=== PATIENT | female | born 1995 | race Caucasian/White ===

== ENCOUNTER → 2018-04-30 15:55 | Outpatient (CLI) | payer OTHER, SELFPAY ==
[2018-04-30 18:48] LABS: HIV - WCH Non-Reactive (Nonreactive)
[2018-04-30 19:29] LABS: Chlamydia Trachomatis by PCR Negative (Negative); Neisserai gonorrhoeae by PCR Negative (Negative); Probe Check PASS; Sample Adequacy Control PASS; Specimen Processing Control PASS
[2018-05-02 05:06] LABS: Rapid Plasmin Reagin (RPR) NONREACTIVE (NONREACTIVE)
== END ==
PROVIDERS: Family Provider Family Medicine; PCP Family Medicine; Visit Provider Family Medicine
DX: Z11.3 Encounter for screening for infections with a predominantly sexual mode of transmission (principal)
CPT/HCPCS: 36415; 86592; 86703; 87491; 87591

== ENCOUNTER → 2018-09-12 12:17 | Outpatient (CLI) | payer OTHER, SELFPAY ==
[2018-09-12 15:10] LABS: HIV - WCH Non-Reactive (Nonreactive)
[2018-09-12 16:03] LABS: Chlamydia Trachomatis by PCR Negative (Negative); Neisserai gonorrhoeae by PCR Negative (Negative); Probe Check PASS; Sample Adequacy Control PASS; Specimen Processing Control PASS
[2018-09-19 05:26] LABS: Rapid Plasmin Reagin (RPR) NONREACTIVE (NONREACTIVE)
== END ==
PROVIDERS: Family Provider Family Medicine; PCP Family Medicine; Visit Provider Family Medicine
DX: Z11.3 Encounter for screening for infections with a predominantly sexual mode of transmission (principal)
CPT/HCPCS: 36415; 86592; 86703; 87491; 87591

== ENCOUNTER 2019-05-11 09:00 | Outpatient (RCR) | payer OTHER, SELFPAY ==
--- NOTE | 2019-05-11 09:05 | BH.SGPN.GN ---
Behaviors/Verbalizations/Mental Status: []Client alert and oriented, casually dressed and groomed. Eye contact good. Motor activity appropriate. Speech soft. Affect congruent, mood anxious. Thoughts linear, logical, no signs of hallucinations or delusions. Reviewed client?s symptom tracker, no risk for suicidal ideation, plan, or intent as of 05/11/19. Client Response/Progress/Benefit: []Client responded well to session, receptive to feedback from peers. Client reports feeling ?anxious? today as it is her first day in IOP. Client reported she has been dealing with mental health for a long time and she wants to work on better managing her symptoms and ?improving my memory.? Client reports that she dissociates and then misses out on important things in her life. Client also shared her dissociation impacts her relationships. Client?s current stressor includes anxiety symptoms and interpersonal relationship issues. Client appeared to benefit from connecting with peers. Client?s first day in IOP. Client to continue to prevent decompensation and reduce intensity of symptoms.
--- NOTE | 2019-05-11 10:20 | BH.SGPN.GN ---
Behaviors/Verbalizations/Mental Status: [] Eye contact is good. Motor activity is appropriate. Appearance is casual. Speech is Appropriate. Mood is depressed. Affect is flat. Thoughts are linear and logical. No evidence of psychosis. Client Response/Progress/Benefit: [] Pt provided insight during group discussions. Attentive. Processed quote of the day with peers. Group worked together to identify barriers to making changes or taking action in their lives which included; lack of self-awareness, old habits, one's mindset, fear of failure, negative emotions (depression, anxiety, etc..), lack of resources, and other people. Group also identified that benefits of change which included; improved relationships, increased communication, improved mental wellness, increased confidence, and feelings of accomplishment. Discussion on the costs of not taking action or making changes which included; being stuck, no growth, lose friendships, impairs functioning, and not changes is a form of self-sabotage. Pt attentive during psychoeducation on the zones of change. Benefited from group through awareness of barriers and benefits to taking action towards mental wellness. Narrative Note: []
--- NOTE | 2019-05-11 11:23 | BH.SGPN.GN ---
Behaviors/Verbalizations/Mental Status: [Client alert and oriented. Appearance is casual, appropriate grooming. Eye contact good. Motor activity WNL. Speech appropriate rate and tone. Affect congruent. mood anxious. Thoughts linear, logical, no signs of hallucinations or delusions.] Client Response/Progress/Benefit: [Pt provided some input to discussion, remaining attentive and taking notes throughout. Pt benefitted from working with group to reflect upon the mental health benefits of taking small actionable steps towards addressing barriers and promoting healthy change in daily life. Indicated at times struggling with motivation and belief in her own ability to successfully make changes. Pt did well to work with the group on completing the example Change Action Plan and applying the skills learned to pt own Action Plan. Pt identified wanting to improve ability to manage anxious thoughts. Pt shared this would increase stability, reduce dissociation, and increase hope. Pt shared she would begin by practicing applying grounding skills and positive affirmations when feeling anxious. Pt progress noted in ability to identify concrete and realistic steps to addressing barriers to actionable change identified. Recommended continued IOP tx to prevent decompensation, reduce anxiety, and promote healthy change behaviors.] Narrative Note: []
--- NOTE | 2019-05-13 09:10 | BH.SGPN.GN ---
Behaviors/Verbalizations/Mental Status: []Client alert and oriented, casually dressed. Eye contact good. Motor activity appropriate. Speech within normal limits. Affect constricted, mood anxious. Thoughts linear, logical, no signs of hallucinations or delusions. Reviewed client?s symptom tracker, patient indicated a 2/5, with 5 representing severe, for suicidal ideation and a 0/5 for suicidal intention. Client does not seem to be imminent risk to self or others. Future focused. Client Response/Progress/Benefit: []Pt was an active participant in group discussion, providing input and openly processing with the group. Emotion for today is anxious. Pt identified she has been struggling with constant fatigue. Pt states she will sleep for 12+ hours and still feel tired and fatigued. Pt noted progress as being able to drive to IOP today despite feeling anxious when driving. Additional positive as talking with friends via skype yesterday instead of isolating. Progress noted by pt applying healthy skills to manage anxiety outside treatment environment. Continued IOP tx recommended to increase awareness of distorted thoughts, prevent decompensation, and increase healthy coping skills. Narrative Note: []
--- NOTE | 2019-05-13 11:21 | BH.SGPN.GN ---
Behaviors/Verbalizations/Mental Status: [Client alert and oriented, casually dressed and appropriately groomed. Eye contact fair to good. Motor activity appropriate. Speech within normal limits. Affect congruent, mood dysthymic and anxious. Thoughts linear, logical, no signs of hallucinations or delusions.] Client Response/Progress/Benefit: [Client responded well to session, engaged in activity, and providing input to discussion. Group identified the benefits of addressing stigma which included; increased self-confidence and self-acceptance, improved willingness to ask for help, improved relationships and feeling more supported, and less self-deprecation. Client helped the group identify thoughts and behaviors people engage in that reinforce stigma. Client reported he has struggled with negative self-talk, shame, feeding into societal expectations and perspectives related to mental health, and labeling which reinforces stigma in pt life. Shared how his difficulties in dealing with adversity on other areas of his life has influenced mental health stigma and reinforced feelings of shame. Group brainstormed strategies to combat social and perceived stigma which included; changing personal language used, sharing positive mental health related media, communicating with supports to help them better understand mental health, and increasing psychoeducation of self and others. Client reported he will practice being more self-aware of the types of language he uses as a means to combat stigma. Appeared to benefit from increasing awareness of ways current behaviors may reinforce stigma and how to combat stigma. Will continue IOP tx to further reduce anxiety and depression, improve mood stability, as well as increase the use of calming skills.] Narrative Note: []
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
--- NOTE | 2019-05-15 14:10 | HP.PCM_ITS ---
History and Physical Date of Admission: 05/11/19 Chief Complaint: The patient is a 23-year old transgender female (biological male) who is beginning treatment in the intensive outpatient mental treatment program at [facility]. She has a history of chronic depression, anxiety, dissociative episodes, gender dysphoria and personality vulnerabilities. She is self-referred following an admission to [facility] in January 2019. History of Present Illness: Patient states that she has had problems with depression since elementary school. She reports episodes of depression of usually a moderate intensity. She reports that her mood is currently fairly good with the help of her medications. There is no history of manic episodes. Her mood decompensated earlier this year in the setting of a relationship problem. She said that she was having sex with a girl when the girl told her to stop touching her a certain way. However, she ignored the girl's complaints and continued the sexual behavior. Subsequently, she started to feel bad about what happened, went into a dissociative state, started cutting herself and became suicidal. This is what prompted the [place] admission in January 2019. She further reports that she has had problems with anxiety ever since elementary school. She is a big worrier and often worries about the future, many what if's and relationship issues. The patient has personality vulnerabilities. She lacks coping skills and goes into frequent dissociative episodes. She said that during her dissociative episodes she has out of body experiences a sense of unreality. She also lacks recall, and said that there are long periods of time that she just does not remember. She also has a history of mood swings. She said that her moods change very quickly. When she cannot deal with her emotional instability, she engages in cutting behavior and has done this since high school. She has a history of identity problems. She has a history of binging and purging behavior in the past as a way to deal with stress and uncomfortable emotions. Patient states that she has had problems with of sexual identity she was a child. She has been receiving hormone therapy through [facility] in [place] for the past 3 years. She receives estrogen supplementation and testosterone blockers. He said that her computer mechanic at [facility] does not require her to be in therapy for her gender dysphoria issues. Past Psychiatric History: There has been one prior hospitalization at [facility] in January 2019 as per HPI. Denies any history of suicide attempts. She has been engaging in cutting behavior for the past 3 years. She was first treated for her gender dysphoria in high school by seeing a counselor. She was first treated for her other mental health problems several years ago. She has been tried on several psychiatric medicines in the past. She believes that her current medicines are helping her. Current Psychiatric Medications: Abilify 10 mg daily, Wellbutrin XL 300 mg daily, Elavil 25 mg nightly (the patient says for TMJ symptoms). Medical History: The patient states that she has fibromyalgia. She has been diagnosed with TMJ. She is receiving supplemental estrogen and testosterone blockers. Allergies: Cymbalta Family Psychiatric History: The patient states that numerous aunts and uncles have a history of mental health problems including depression, anxiety and substance abuse. She says her mother has generalized anxiety. Personal/Social History: The patient reports that her parents are still and she reports a fairly good relationship with them. She has a good relationship with her mother. Her relationship with her father was strained in the past but is now improving. She has a 35-year-old sister and reports a good relationship with her. She is currently in her third year at [employer] studying psychology. She has a 3.1 GPA. She is currently home for the summer and staying with her parents. 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 The patient has never . She describes her sexual orientation as polyamorous. She has been together with a girlfriend for the past 3 years and her girlfriend lives in [place]. Substance Abuse: The patient said she is a social drinker and has never had an alcohol problem. She smoked marijuana earlier in college on occasion. She denies other drug use. Review of Systems: Psychiatry: Improving depression and anxiety. She is not suicidal. There is no psychosis and she is cognitively intact. Constitutional: She is of large build and her weight has been steady. Her energy level is good. Endocrine: She is receiving estrogen and testosterone blockers as per medical history. All other systems reviewed and are negative. Examination: The patient presents as a large individual with very long hair and with effeminate qualities. She has good social skills. Vital signs: Height 6 foot 1 inch, weight 185 pounds, respirations 15. Musculoskeletal: Some chronic pain. Her speech is fluent and spontaneous. Her language is intact. Her judgment and insight are questionable. She is alert and oriented x3. Her affect is cordial and appropriate. Her recent and remote memory are intact. She demonstrates normal attention span and concentration on examination. She has normal thought processes and abstract reasoning. Sessions are intact. There are no hallucinations or delusions and she is not suicidal. She demonstrates normal age-appropriate fund of knowledge. Mental Status Examination: The patient presents as a large individual with very long hair and with effeminate qualities. She has good social skills. Her thoughts are logical and coherent. She reported improvement in depression and anxiety. She is not actively suicidal. There is no psychosis. She is cognitively intact. 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 Pomeroy III: History of fibromyalgia and TMJ Plan: I am continuing treatment with Abilify, Wellbutrin and Elavil at the current doses. Patient will continue participation in the intensive outpatient groups. I will see her again for follow-up.
--- NOTE | 2019-05-15 14:10 | BH.DR.ITP ---
Initial Treatment Plan - Patient Information Visit Information: ADMISSION DATE: 05/11/19 EXPECTED LOS: 4-6 weeks Diagnoses:: Recurrent Major Depression; CALDERON; depresonalization/dearalization disorder; personality disorder with borderline traits - Problems/Symptoms Problem #1:: depression Symptom:: h/o low mood, anhedonia; suicidality Problem #2:: anxiety Symptom:: lacking coping skills and becoming stressed out, feeling anxious Problem #3:: derealization/depersonalization disorder Symptom:: frequent episodes of out of body sensations and unreal sensations, especially when under stress
--- NOTE | 2019-05-18 09:05 | BH.SGPN.GN ---
Behaviors/Verbalizations/Mental Status: [Eye contact is fair to good. Motor activity is appropriate. Appearance is casual. Speech is Appropriate. Mood is dysthymic, quiet. Affect is congruent. Thoughts are linear and logical. No evidence of psychosis. Reviewed daily check in sheet, pt reports suicidal ideations as a 2/5 which is consistent with baseline reports. Denies intent. Future oriented and reports ability to maintain safety] Client Response/Progress/Benefit: [Pt was attentive in group discussion, actively listening when others shared. Emotions for today is calm/peaceful and indicated that she has been able to successfully follow through with some of her goals established in individual session. Pt went on to indicate that current mental health wins include practicing opposite action by reaching out to some friends despite struggling with feelings of depression. Pt reflected that she was able to remind herself of the benefits of doing so to gain enough motivation to follow through. Current stressor includes ongoing feelings of disassociation, which she discussed have impacted ability to enjoy present moment. Pt was receptive of practicing checking-in with self to begin identifying warning signs for these feelings and implement grounding techniques to remain in the present moment. Pt noted knowing mindfulness techniques but has not yet applied such which may be impacting progress thus far. Benefited from support provided by the group and expressing current stressors. Will continue in IOP to promote change behaviors, improve consistent skill application, and prevent decompensation.] Narrative Note: []
--- NOTE | 2019-05-18 10:15 | BH.SGPN.GN ---
Behaviors/Verbalizations/Mental Status: []Client alert and oriented, casually dressed and groomed. Eye contact good. Motor activity appropriate. Speech soft. Affect congruent, mood dysthymic. Thoughts linear, logical, no signs of hallucinations or delusions. Client Response/Progress/Benefit: []Client responded well to session, some contributions, engaged in activity. Client appeared to connect with the topic of personal pitfalls and how they can prevent mental health progress. Client identified examples of pitfalls such as negative thinking, lack of healthy support, and isolation. Client agreed with peers that pitfalls can occur due to habit and comfort zones. Client reported to get on the ?right path? and overcome pitfalls, one needs self-awareness. Client participated in the group activity and reported ability to manage her emotions by reminding herself and the group to go slow and to not react impulsively. Client agreed with peers that the group did better when they used communication. Client appeared to benefit from increasing self-awareness and applying in the moment coping. Progress limited due to client?s minimal sharing in group session. Client to continue IOP to prevent decompensation and increase application of healthy coping skills.
--- NOTE | 2019-05-18 11:15 | BH.SGPN.GN ---
Behaviors/Verbalizations/Mental Status: []Pt eye contact good, casually dressed, motor activity restless, speech normal rate and tone, mood anxious, congruent affect, thoughts linear and intact, no evidence of delusions or hallucinations. Client Response/Progress/Benefit: []Pt was engaged throughout session AEB pt providing input during discussion and attentive to peers. Pt completed a worksheet where she identified own personal pitfalls. Pt identified top 5 personal pitfalls to include: letting herself dissociate, not challenging negative thoughts, allowing others to make decisions for her, not challenging self to get out of comfort zone and avoiding public spaces. Group worked together to identify strategies to overcome personal and general pitfalls which included: setting realistic expectations, positive self-talk, utilizing support system, identifying coping skills that are effective and not effective, reframing, and challenging negative thoughts. Pt identified she will work on challenge negative thought patterns to decrease personal pitfalls. Benefited from identifying personal and general pitfalls and strategies to overcome these pitfalls. Will continue in IOP to increase utilization of healthy coping, decrease avoidance and prevent decompensation. Narrative Note: []
--- NOTE | 2019-05-20 10:15 | BH.SGPN.GN ---
Behaviors/Verbalizations/Mental Status: []Pt eye contact fair, casually dressed, motor activity appropriate, speech normal rate and tone, mood anxious, constricted affect, thoughts linear and intact, no evidence of delusions or hallucinations. Client Response/Progress/Benefit: []Client passive participant during group discussion AEB pt not providing input, however did appear to listen attentively to others comments. Client appeared to connect with others comments about importance of communicating needs with support people as shown by pt nodding her head in agreement. Client listened to group brainstorm about potential consequences of not having a support system. Group identified benefits of social support as improving self-confidence, gaining different perspectives, being challenged, and comfort with knowing there is someone can talk to if in need. Client was engaged during the group activity and showed increased engagement as shown by client communicating with peers and cooperating throughout. Appeared to benefit from gaining awareness of barriers that keep people from seeking social support as well as connecting with peers. Client to continue IOP to improve utilization of healthy coping, decrease isolative behaviors and prevent decompensation. Narrative Note: []
--- NOTE | 2019-05-20 11:15 | BH.SGPN.GN ---
Behaviors/Verbalizations/Mental Status: []Client alert and oriented, casually dressed and groomed. Eye contact fair. Motor activity appropriate. Speech within normal limits. Affect constricted, mood anxious. Thoughts linear, logical, no signs of hallucinations or delusions. Client Response/Progress/Benefit: []Client responded well to session, active participant in discussion. Client helped the group discuss and identify different social supports as well as the benefits of different supports. The group identified examples of personal, self-help, professional, spiritual, and co-worker social supports. Group identified benefits of receiving social support to be; new ideas, accountability, someone to listen, non-judgmental stance, sense of belonging, and connection. Client reported she wants to increase her personal social support network and she plans to do this getting closer to her parents. Client shared increasing this social support would make client feel more comfortable and confident. Client appeared to benefit from increasing understanding of different types of social support and identifying ways she can improve. Progress noted in client?s increased participation in group, but client continues to struggle with mood instability and feeling disconnected. Client to continue IOP to prevent decompensation and increase use of coping skills.
--- NOTE | 2019-05-20 14:32 | BH.MDN ---
Multi-Disciplinary Note - Note 60-min Individual Time Started:: 09:09 Date: 05/20/19 Time Stopped:: 10:03
--- NOTE | 2019-05-20 15:33 | BH.MTP_ITS ---
Master Treatment Plan - Patient Information Program Physician:: Dr. Sánchez Primary Therapist:: Beverley Roca, [facility] - Psychiatric Diagnoses Psychiatric Diagnoses:: Depression, recurrent, in partial remission; generalized anxiety disorder; gender dysphoria; depersonalization/derealization disorder; borderline personality traits. Diagnosis Code(s):: F33.41; F41.1 - Estimated LOS Estimated LOS (in weeks):: 6 Problem/Goal #1 - Problem/Goal #1 Stated Goal:: Client will decrease depressive symptoms, isolation, and suicidal ideation due to Major Depressive Disorder through Intensive Outpatient Program. - Objectives Objective #1 Stated Objective: Client will learn and utilize 2-3 healthy coping strategies to manage depressive symptoms. Interventions: Therapist will assist client in learning internal coping strategies to manage depressive symptoms, along with helping client identify triggers. Discharge Criteria: Client will have achieved this goal when can verbalize and has practiced at least 2 healthy coping strategies. Objective #2 Stated Objective: Pt will decrease depressive symptoms AEB pt?s score on the DSM 5 cross-cutting measure and improve pt?s daily functioning. Interventions: Through groups and individual therapy, pt will be provided with education on cognitive distortions, mistaken beliefs, and identifying and combating negative self-talk. Therapist will assist pt with getting back into the activities she once enjoyed as well as increasing healthy coping strategies. Discharge Criteria: Pt will have met this goal when pt?s score on the DSM 5 cross cutting measure for depression has been decreased and per pt?s report daily functioning has improved. Problem/Goal #2 - Problem/Goal #2 Stated Goal:: Client will reduce overall frequency, intensity, and duration of the anxiety so that daily functioning is not impaired. - Objectives Objective #1 Stated Objective: Client will learn and implement 2-3 calming skills to reduce overall anxiety and decrease dissociation. Interventions: Therapist will teach client calming/relaxation skills and assign client homework which practices relaxation skills daily. Therapist will teach mindfulness skills to increase pt's ability to be present versus dissociating when feeling overwhelmed or stressed. Discharge Criteria: Client will have achieved this goal when can consistently implement at least 2 calming skills and report decrease in anxious symptoms and dissociation. Objective #2 Stated Objective: Pt will decrease anxious symptoms AEB pt?s score on the DSM 5 cross-cutting measure improve pt?s daily functioning. Interventions: Through groups and individual therapy, pt will be provided education about anxiety?s impact on body and common physiological reaction to anxiety. Therapist will teach pt appropriate breathing techniques and build healthy coping skills to manage daily anxieties. Discharge Criteria: Pt will have met this goal when pt?s score on the DSM 5 cross cutting measure for anxiety has been decreased and per pt?s report daily functioning has improved.
--- NOTE | 2019-05-22 09:05 | BH.SGPN.GN ---
Behaviors/Verbalizations/Mental Status: []Client alert and oriented, neatly dressed and groomed. Eye contact good. Motor activity appropriate. Speech within normal limits. Affect congruent, mood euthymic. Thoughts linear, logical, no signs of hallucinations or delusions. Reviewed client?s symptom tracker. Client marked 1/5 for thoughts of suicide, which client reports is her baseline. No risk for plan or intent as of 05/22/19. Client Response/Progress/Benefit: []Client responded well to session, engaged and attentive throughout. Client reports feeling ?empowered? today. Client shared her big mental health win is that she was able to use body scanning to ?not dissociate.? Client reported she has struggled with dissociation for a long time, and she often felt powerless to it. Client stated now she feels ?really good because I can control it? and be more in the moment. Client?s current stressor is that she dissociated ?a lot? yesterday. However, client recognizes that now she has coping skills to manage this more effectively. Client appeared to benefit from identifying a coping skill that will help her better manage mental health symptoms. Progress noted in application of coping skills. Client to continue IOP as she can further reduce suicidal ideations and symptoms of depression and anxiety.
--- NOTE | 2019-05-22 10:15 | BH.SGPN.GN ---
Behaviors/Verbalizations/Mental Status: [Eye contact is fair to good, at times distracted by phone. Motor activity is appropriate. Appearance is casual. Speech is Appropriate. Mood is dysthymic, distracted. Affect is congruent with mood. Thoughts are linear and logical. No evidence of psychosis.] Client Response/Progress/Benefit: [Pt mostly engaged, provided some input to the discussion and willing to participate in the group activity. At some points throughout discussion she struggled with maintaining attention and appeared distracted by her phone. Pt did well to remain attentive as fellow participants discussed connections between activity and barriers/supports to development of a resilient lifestyle. She was able to regain attention and work within the small group setting to discuss factors in building Resilience. Pt benefitted from brainstorming strategies for developing and promoting a resilient lifestyle. Identified that ?fostering a positive view of self? would aid in promoting resilience by increasing ability to identify personal improvements and increase confidence in ability. Pt progress noted in ability to connect with materials discussed and begin recognizing the ways this relates to own personal life. Recommended continued IOP tx to prevent decompensation, promote healthy change behaviors, as well as continue to work on application of emotion regulation skills.] Narrative Note: []
--- NOTE | 2019-05-22 11:20 | BH.SGPN.GN ---
Behaviors/Verbalizations/Mental Status: []Client alert and oriented, casually dressed. Eye contact good. Motor activity appropriate. Speech within normal limits. Affect constricted, mood anxious. Thoughts linear, logical, no signs of hallucinations or delusions. Client Response/Progress/Benefit: []Client passive participant as evidenced by client only providing input if elicited by therapist. Client did appear to listen attentively to peers. Client engaged in the group activity as shown by client working cooperatively with others and encouraging others. When processing activity client appeared to connect with others comments about how the group was able to be successful by utilizing the 10 different resilient factors. Client reported she wants to work on accepting that change is a part of living by spending 10 minutes each day practicing radical acceptance skills. Client appeared to benefit from identifying goal to improve personal resilience factors. Client to continue IOP to increase social connections, decrease negative thinking and prevent decompensation. Narrative Note: []
--- NOTE | 2019-05-25 09:06 | BH.SGPN.GN ---
Behaviors/Verbalizations/Mental Status: [Eye contact is fair to good. Motor activity appropriate. Appearance is casual. Speech is Appropriate. Mood is euthymic. Affect is congruent. Thoughts are linear and logical. No evidence of psychosis. Reviewed daily check in sheet and no reports of suicidal ideations or intent.] Client Response/Progress/Benefit: [Pt was attentive in group discussion, providing some feedback throughout though taking on a mostly passive and observatory role. She was able to connect with the reflections of fellow participants AEB nodding throughout. Pt emotion for today is hopeful as she is beginning to see observable progress in management of her mental health. Reports current mental health wins include: having two consecutive ?good days? without minimizing them, as well as using healthy conflict resolution skills in confronting a former partner about harmful comments they made on social media. Reports this was effective in increasing self-confidence. Pt showing progress in increased willingness to identify small positives and wins. Appearing to benefit from the supportive group environment as well as reflecting upon areas of progress. Pt reports current stressor is fear of not being able to maintain progress. Will continue in IOP to further promote consistent skill application, continue to reduce anxiety, increase distress tolerance, and prevent decompensation.] Narrative Note: []
--- NOTE | 2019-05-25 10:15 | BH.SGPN.GN ---
Behaviors/Verbalizations/Mental Status: []Client alert and oriented, casually dressed and groomed. Eye contact good. Motor activity appropriate. Speech within normal limits. Affect constricted, mood euthymic. Thoughts linear, logical, no signs of hallucinations or delusions. Client Response/Progress/Benefit: []Client participated in group discussion and activity. Client reported she has avoided conflict because it is scary. Worked together with the group to define and identify differences between internal and external conflict. Group identified and discussed the benefits of addressing internal/external conflict which includes; express emotions and thoughts, resolve problems, improve relationships, and improve mental health. Client worked with group to identify barriers to overcoming conflict which included; body language, unmanaged emotions, defensiveness, tone of voice, negative thoughts, being closed minded, and low self-worth. Attentive during psychoeducation on different conflict styles such as avoiding, accommodating, competing, and collaborative. Reviewed benefits and drawbacks to each style. Benefited as she was able to identify and define conflict as well as increase awareness of how conflict style impacts mental health. Progress noted as client reports utilization of radical acceptance and body scanning. Client to continue IOP to prevent decompensation and increase mood stability.
--- NOTE | 2019-05-25 11:20 | BH.SGPN.GN ---
Behaviors/Verbalizations/Mental Status: []Pt eye contact good, casually dressed, motor activity appropriate, speech normal rate and tone, mood anxious and dysthymic, constricted affect, thoughts linear and intact, no evidence of delusions or hallucinations. Client Response/Progress/Benefit: []Client responded well to session, engaged throughout session. Client further processed conflict resolution style, identifying she is most often accommodating because it is easier to make others happy. Client reported her mental health has been negatively impacted by being accommodating because she allows other people to get their needs met ahead of her own. Client was encouraged to practice being collaborative during the activity. Overall client did well with collaborating with others during activity, at times she reverted back to accommodating. Client agreed with group that talking through opinions and focusing on one thing at a time helped effectively resolve conflict. Client helped the group identify strategies to better manage conflict which included: focusing on one issue at a time, listening to the other person, not making assumptions, managing emotions appropriately, and being assertive. Client appeared to benefit from learning conflict resolution strategies and increasing self-awareness. Progress noted as client has been applying skills outside treatment environment. Client to continue IOP to prevent decompensation, increase healthy supports, and utilize healthy coping skills. Narrative Note: []
--- NOTE | 2019-05-29 09:00 | BH.SGPN.GN ---
Behaviors/Verbalizations/Mental Status: []Client alert and oriented, casually dressed and groomed. Eye contact fair-on her phone at times. Motor activity appropriate. Speech within normal limits. Affect congruent, mood calm. Thoughts linear, logical, no signs of hallucinations or delusions. Reviewed client?s symptom tracker, no risk for suicidal ideation, plan, or intent as of 05/29/19. Client Response/Progress/Benefit: []Client responded well to session, quiet, but participating when prompted. Client reports feeling ?hopeful? today. Client identified her mental health win today to be going three days in row ?with no real stressors.? Client shared this is the first time in a while that she has had multiple good days in a row. Client stated she has been practicing radical acceptance for at least 10 minutes a day, which client identified as something she is proud of herself for. Client shared she focuses on coping with her emotions in the present and ?accepting the past for how it is.? Client denied any stressors today. Client appeared to benefit from reflecting on her use of coping skills to manage mental health symptoms. Progress noted in generalization of healthy coping skills to manage symptoms. Client also reports a reduction in dissociation symptoms. Client to continue IOP to promote gains and further increase emotional regulation skills.
--- NOTE | 2019-05-29 10:10 | BH.SGPN.GN ---
Behaviors/Verbalizations/Mental Status: [] Eye contact is good. Motor activity is appropriate. Appearance is causal. Speech is Appropriate. Mood is depressed. Affect is flat. Thoughts are linear and logical. No evidence of psychosis. Client Response/Progress/Benefit: [] Pt minimally participated in group activity and discussions. Group worked together to identify benefits to developing goals which included; helps one grow, improves mental health through purpose, gives one something to look forward too or strive for, motivates, keeps one focused, can give a sense of accomplishment, and provides hope for the future. Group also identified barriers to setting and accomplishing goals which included; fear fo failure, past negative experiences, negative people in our lives, negative thoughts, our emotions (depression, stress, anger, anxiety), trouble getting out of our comfort zone, and our perception or outlooks. Attentive during education on developing SMART goals. Benefited from increase awareness of goal-setting methods. Will continue in IOP to maintain safety, improve daily functioning, and prevent decompensation. Narrative Note: []
--- NOTE | 2019-05-29 11:09 | PN_ITS ---
Progress Note Chief Complaint: The patient is a 23-year old transgender female (biological male) who is an active participant in the intensive outpatient mental health treatment program at [facility]. She has a history of chronic depression, anxiety, dissociative episodes, gender dysphoria and personality vulnerabilities. History of Present Illness/Interim History: The patient reports doing well. Her mood has been good, no significant depression. She has some periods of stress but denies any significant anxiety at this time. No recent problems with dissociative episodes. She thinks any intensive outpatient groups have been helpful and she is learning coping skills. She reports doing well with her current medications. Current Psychiatric Medications: Abilify 10 mg daily, Wellbutrin XL 300 mg daily, Elavil 25 mg nightly Review of Symptoms: Psychiatry: No significant depression and improving anxiety. She is not suicidal. There is no psychosis. She is cognitively intact. Constitutional: She is of large build and her weight has been steady. Her energy level is good. Mental Status Examination: The patient presents as a large individual with very long hair and with effeminate qualities. She has good social skills. Her thoughts are logical and coherent. She denies significant depression or anxiety. She is not suicidal. There is no psychosis. She is cognitively intact. Diagnoses: [] [place] I: Major depression, recurrent, in partial remission; generalized anxiety disorder; gender dysphoria; depersonalization/derealization disorder [place] II: Personality disorder with borderline traits [place] III: History of fibromyalgia and TMJ Plan: I am continuing treatment with the patient's current medicines as presc ribed by her outpatient provider. She will continue participation in the intensive outpatient groups. I will see her again for follow-up.
--- NOTE | 2019-05-29 11:15 | BH.SGPN.GN ---
Behaviors/Verbalizations/Mental Status: [Pt eye contact fair to good, casually dressed, motor activity appropriate, speech normal rate and soft tone, mood dysthymic, constricted affect, thoughts linear and logical, no evidence of delusions or hallucinations. ] Client Response/Progress/Benefit: [Pt attentive throughout, however contributed limited input to discussion. Taking notes throughout and nodding as fellow participants reflected on challenge activity. Pt provided some input to reflection, indicating that communication was important in the group?s ability to achieve goal. Did well to make connections between barriers faced and supports used with own life. Engaged in creating own mental health SMART goal and seemed to benefit from developing ways to overcome potential barriers to reaching this goal. Pt reports supports for achieving goal as: practicing mindfulness, taking small steps, and focusing on positives. Progress limited due to decreased engagement in session, however pt able to complete goal setting portion of session. Pt to continue IOP level care to promote healthy change behaviors, decrease depressive sx, and prevent decompensation. ] Narrative Note: []
[2019-06-26 13:35] VITALS: BP 104/66; PULSE 94; RESP 14
== END 2019-05-31 23:59 ==
LOC: BHIOP 09:00
PROVIDERS: Family Provider Family Medicine; PCP Family Medicine; Referring Provider Psychiatry & Neurology Psychiatry; Visit Provider Psychiatry & Neurology Psychiatry
DX: F33.9 Major depressive disorder, recurrent, unspecified (principal); F41.1 Generalized anxiety disorder; F48.1 Depersonalization-derealization syndrome; F60.9 Personality disorder, unspecified; M79.7 Fibromyalgia; Z81.8 Family history of other mental and behavioral disorders; Z79.899 Other long term (current) drug therapy
CPT/HCPCS: H0035; 90834; 90837; 90853

== ENCOUNTER 2019-06-01 09:00 | Outpatient (RCR) | payer OTHER, SELFPAY ==
--- NOTE | 2019-06-01 09:10 | BH.SGPN.GN ---
Behaviors/Verbalizations/Mental Status: [] Eye contact is good. Motor activity is appropriate. Appearance is casual. Speech is Appropriate. Mood is depressed. Affect is flat. Thoughts are linear and logical. No evidence of psychosis. Reviewed daily check sheet with no reports of suicidal ideations or intent. Client Response/Progress/Benefit: [] Pt participated in group discussion at times. Emotion for today is hopeful. Shared that she started to have bad memories this weekend however chose not to elaborate. States while this was distressing she is hopeful b/c she used strategies used in IOP to address and process emotions which included body scans, affirmations, and mindfulness strategies. States that this was a win and noted that she did not experience any dissociation symptoms either. Was able to process negative thoughts and not let them consume her for the rest of the weekend and actually enjoyed some activities. Progress noted per pt report. Benefited from group feedback, support, and encouragement. Will continue in IOP to prevent decompensation, improve functioning, and stabilize mood. Narrative Note: []
--- NOTE | 2019-06-01 11:12 | BH.SGPN.GN ---
Behaviors/Verbalizations/Mental Status: [Pt alert and oriented, casual dress, grooming appropriate - appearing to put more effort in appearance than usual AEB wearing a dressy blouse. Eye contact good. Motor activity appropriate. Speech within normal limits. Affect congruent, mood euthymic, tired. Thoughts linear, logical, no signs of hallucinations or delusions.] Client Response/Progress/Benefit: [Pt responded well to session, provided limited verbal input however engaged in discussion throughout AEB nodding and taking notes. Pt participated in the activity and processed emotions associated with making change, indicating that change is necessary for growth. Pt appeared to connect with discussion on weighing the pro?s and cons associated with change and benefited from learning to do so through use of decisional balance sheet. Identified a change she would like to make to improve mental health as: learning and applying new skills for coping with dissociation. Pt reported potential benefits of change as: better relationships with those around me, better quality of life, and improved ability to cope. While the costs of not making the change included: triggering memories, loss of relationships, and hurting others. Progress noted in ability to actively process the pros and cons of change as they relate to her own mental health experience. Recommended continued IOP to continue to promote healthy change behaviors, increase consistent identification of warning signs and use of healthy coping skills to prevent dissociation, as well as prevent decompensation.] Narrative Note: []
--- NOTE | 2019-06-03 09:02 | BH.SGPN.GN ---
Behaviors/Verbalizations/Mental Status: []Pt eye contact good, casually dressed, motor activity appropriate, speech normal rate and tone, mood euthymic, congruent affect, thoughts linear and intact, no evidence of delusions or hallucinations. Pt completed symptom tracker indicated a 1/5 with 5 being severe for suicidal thoughts and a 0/5 for suicidal intention. Pt future focused. Pt does not appear to be imminent risk to self or others. Pt's suicidal thoughts baseline has been a 1/5 since starting IOP. Client Response/Progress/Benefit: []Client engaged in session as evidenced by client sharing thoughts and feelings, listened attentively to others. Client reported a mental health positive to be using healthy coping skills when having bad memories flash back. Client shared she still dissociated a little, but the duration of the episode decreased. Client identified additional positive as waking up early this morning which gave her more time to relax and not have to francis to IOP. Client identified currently stressed about the bad memories that flashed back yesterday. Client showing progress with applying skills, like body scan, to her everyday life. Client to continue IOP level of care to maintain gains, continue use of healthy skills, and prevent decompensation. Narrative Note: []
--- NOTE | 2019-06-03 10:14 | BH.SGPN.GN ---
Behaviors/Verbalizations/Mental Status: [Client alert and oriented, casually dressed and appropriately groomed. Eye contact fair to good. Motor activity appropriate. Speech soft. Affect congruent, mood dysthymic. Thoughts linear, logical, no signs of hallucinations or delusions.] Client Response/Progress/Benefit: [Pt responded well to session, providing some input to discussion on fear of failure when however remained a mostly observant participant throughout psychoeducation portion. Pt did well to connect with potential factors impacting how we manage setbacks and cope with failures, sharing that a supportive environment growing up has aided in her ability to be more self-compassionate when making mistakes. Pt at times appears to struggle with minimization of mental health sx not related to dissociative episodes, however is beginning to internalize materials more as she engages in groups more consistently. Pt appeared to benefit from gaining awareness of impacts fear of failure can have on mental health through discussion and activity. She participated in challenge activity in which participants actively practiced becoming comfortable with potential failure by using in the moment coping with setbacks. Pt did well to encourage fellow participants and took on a leadership role to aid others in keeping from giving up after several failed attempts. Recommended continued IOP tx to prevent decompensation, continue to promote healthy skill application, and maintain gains.] Narrative Note: []
--- NOTE | 2019-06-03 11:15 | BH.SGPN.GN ---
Behaviors/Verbalizations/Mental Status: []Client alert and oriented, neatly dressed and groomed. Eye contact fair. Motor activity appropriate. Speech within normal limits. Affect flat, mood dysthymic. Thoughts linear, logical, no signs of hallucinations or delusions. Client Response/Progress/Benefit: []Client attentive, but mostly passive during discussion. Client completed fear of failure worksheet, but she declined to share it with the group. Client willing to let therapist see her worksheet. Identified that fear of failure has kept client from seeking mental health help in the past. Client identified barriers to overcoming fear of failure which included; reluctance, feeling ?too broken to help,? bad memories, hopelessness, and unhealthy coping skills. Client identified things that she can do to overcome fear of failure such as; using radical acceptance, meditation, positive affirmations, and self-care. Benefited from identifying the impact that fear of failure has had on her life and developing strategies to overcome this. Client reports progress in managing her anxiety symptoms to reduce dissociation, but she continues to struggle with mood instability. Will continue IOP to increase emotional regulation and generalization of healthy coping skills.
--- NOTE | 2019-06-05 09:10 | BH.SGPN.GN ---
Behaviors/Verbalizations/Mental Status: [] Eye contact is good. Motor activity is appropriate. Appearance is neat. Speech is Appropriate. Mood is anxious. Affect is congruent. Thoughts are linear and logical. No evidence of psychosis. Reviewed daily check in sheet and no reports of suicidal ideations or intent. Client Response/Progress/Benefit: [] Narrative Note: []
--- NOTE | 2019-06-05 10:14 | BH.SGPN.GN ---
Behaviors/Verbalizations/Mental Status: []Client alert and oriented, neatly dressed and groomed. Eye contact fair. Motor activity appropriate. Speech within normal limits. Affect constricted, mood dysthymic. Thoughts linear, logical, no signs of hallucinations or delusions. Client Response/Progress/Benefit: []Client was an active participant in group activity and a passive participant in discussion. Client listened and took notes as the group to defined anger and its causes. Client was often nodding during the discussion of anger as a secondary emotion. Client shared that sometimes anger masks shame. Reported connecting with the group discussion on how anger can have unintended consequences towards self and others. Client noted the negative consequences of unmanaged anger such as; loss of relationships, loss of job, isolation, hopelessness, and negative perspective. Client participated in the group activity and reported feeling frustrated during the activity. Client and her partner quit the activity due to frustration and the group connected this back to daily life. Benefited from group by increasing awareness of anger as well as the consequences of unmanaged anger. Client reports utilizing calming coping skills which demonstrates progress. However, she is often quiet during group sessions, so it is hard to accurately assess progress. Will continue IOP to promote mood stability and increase emotional regulation.
--- NOTE | 2019-06-05 11:15 | BH.SGPN.GN ---
Behaviors/Verbalizations/Mental Status: [Client alert and oriented, casually dressed and appropriately groomed. Eye contact fair to good - often times looking at clock or down at phone. Motor activity appearing restless AEB leg shaking, working ahead of group on worksheet, and checking phone on various occasions. Speech soft. Affect constricted. mood distracted, anxious. Thoughts linear, logical, no signs of hallucinations or delusions. ] Client Response/Progress/Benefit: [Pt receptive to session, providing some input during discussion though struggled at times with maintaining focus as she was often distracted by self or cell phone. Pt connected with the topic of Anger Management AEB taking notes throughout and providing some input to discussion on mental health impacts of internal and external responses to anger. Reports disrespect and poor boundaries increase her likelihood to become angry and share current responses to anger tend to involve: ?rage out?, ?chew someone out?, or ?dissociate?. Identified internal impact on mental health of current response as: denial, isolation, and prolonged anger. Appeared to benefit from working with group on identifying how to cope with anger in healthier ways and creating her own plan for implementing healthy anger management strategies in daily life. Pt identified wanting to practice diaphragmic breathing during times she is not angry so that she is more likely to utilize it when becoming upset. Progress in pt ability to identify healthy means of preventing escalation, however continues to struggle to make progress in level of engagement in group. Recommended continued IOP tx to prevent decompensation, continue to promote healthy skill application and group engagement, and improve sx management.] Narrative Note: []
--- NOTE | 2019-06-05 17:12 | BH.MDN_ITS ---
Multi-Disciplinary Note - Note 30-min Individual Time Started:: 12:15 Date: 06/05/19 Purpose of session/treatment goals addressed:: Purpose of session was to assess pt's current symptoms and stressors. Other topics included: reviewing treatment progress, reviewed skills, and discussed tentative discharge plans. Eye Contact:: Fair Motor Activity:: Appropriate Appearance:: Casual Speech:: Appropriate Mood:: Anxious Affect:: Congruent Thoughts:: Linear, Logical, No evidence of hallucinations/delusions noted Staff Interventions:: Therapist used open ended questions to elicit pt's current symptoms and stressors. Therapist asked pt's thoughts about her treatment progress since starting IOP. Therapist processed recent stressor, elicited what strategies assisted pt with managing emotions. Therapist discussed importance of creating a maintenance plan. Provided support by using active listening and validating emotions. Client Response:: Pt reported she overall has been doing really well. Pt stated I haven't wanted to kill myself in weeks. Pt reported her mood has improved significantly with minimal depressive symptoms. Pt stated she still is often anxious but with decreased intensity and duration. Pt reported she has noticed a small increase in her anxiety recently as she gets closer to returning to school. Pt stated she found out she will be rooming with a friend of hers which does make her feel less anxious now. Pt reported she has been using her healthy coping skills of body scans, mindfulness, and radical acceptance. Pt stated she has noticed a decrease in dissociative symptoms, attibuted the body scans to be helping her stay more present. Pt reported on Saturday she had flashbacks from what she did at school this past year. Pt stated she was able to use her body scan tools to help manage her emotions and decrease duration of dissociating. Pt reported she also was able to use her conflict resolution skills with her girlfriend by opening communicating concerns that her girlfriend was being too controling. Pt stated in the past she would have never said anything to her girlfriend because didn't like to cause any additional problems. Pt reported she is open to creating a maintenance plan to help her continue the progress she has made thus far. Pt stated in regards to discharge from [facility] she agrees an additional week or two could be helpful with maintaining progress. Pt reported she plans to return to her therapist near [facility]. Risks/Concerns:: Pt denies suicidal ideation, plan or intention to date. Progress Toward Goals/Plan:: Pt progressing with reporting improved mood, decreased anxiety, increased utilization of healthy coping, improved conflict resolution skills, and decreased suicidal thoughts. Plan is to continue IOP level of care to maintain gains, continue utilization of healthy coping, and prevent decompensation. Pt given homework to create maintanence plan by identifying problem areas and what skills help pt with each problem area. Time Stopped:: 12:45
--- NOTE | 2019-06-10 09:02 | BH.SGPN.GN ---
Behaviors/Verbalizations/Mental Status: [Client alert and oriented, casually dressed and appropriately groomed. Eye contact good. Motor activity appropriate. Speech within normal limits. Affect congruent to topic being discussed, mood euthymic, anxious. Thoughts linear and logical, no signs of hallucinations or delusions. Reviewed daily check in sheet, pt denies any current SI, plan, or intent.] Client Response/Progress/Benefit: [Pt engaged in group discussion, listening and providing input to discussion. Emotion for today is confident. Pt indicated that current emotion is due to receiving news that her overall scores for depression have decreased at mid-point review, expressed feeling this reaffirms progress. Identified this as one mental health ?win?. Additional win is keeping herself consistent with using skills of meditation and reframing in order to manage anxiety and effectively cope with triggers on a more consistent basis. Indicates that current stressors is making time to tend to all of her current responsibilities without becoming overwhelmed. Identified strategies for pacing self and taking things one at a time. Pt receptive of and appearing to benefit from feedback and support provided by fellow participants. Progress indicated by pt self-report of more consistent skill application and engagement in treatment. Pt recommended continued IOP tx to promote use of coping skills, maintain stability, and prevent decompensation. ] Narrative Note: []
--- NOTE | 2019-06-10 11:15 | BH.SGPN.GN ---
Behaviors/Verbalizations/Mental Status: []Client alert and oriented, neatly dressed and groomed. Eye contact fair-on her phone at times. Motor activity appropriate. Speech within normal limits. Affect congruent, mood euthymic. Thoughts linear, logical, no signs of hallucinations or delusions. Client Response/Progress/Benefit: []Client was mostly a passive participant in group discussion, and client was often on her phone. Did provide some feedback and was willing to share her coping skills with group. Somewhat attentive during psychoeducation on 4 zones of regulation. Client able to identify how she feels in each zone as well as how she acts in each zone. Client also able to identify coping skills she can use to support herself in each zone which included: body scanning, mediation, reaching out to supports, setting small goals, and challenging negative thoughts. Client shared she is in the ?green? or the alert zone today as client shared ?I?m not feeling bad or really good, I just am.? Client recognized she could benefit from reaching out to her supports today and practicing meditation. Benefited from group from increased education on zones of regulation or stages of alertness for emotions and healthy coping skills to use for each zone. Recommended continued IOP tx to promote mood stability and further reinforce application of healthy coping skills. [
--- NOTE | 2019-06-12 10:15 | BH.SGPN.GN ---
Behaviors/Verbalizations/Mental Status: []Client alert and oriented, casually dressed and groomed. Eye contact fair. Motor activity appropriate. Speech within normal limits. Affect constricted, mood apathetic. Thoughts linear, logical, no signs of hallucinations or delusions. Client Response/Progress/Benefit: []Client responded well to session, attentive and providing examples at times. Client indicated connecting with the topic of cognitive distortions and defined distortions as ?thoughts that are different from what they should be, not reality.? Client agreed with group that negative thoughts impact one?s emotions, behaviors, and increase mental health symptoms. Client did well to work with the group on defining the various types of cognitive distortions and their impact on mental health. Client reported connecting with distortions of catastrophizing, disqualifying the positives, and predicting the future. Appeared to benefit from increasing awareness of cognitive distortions and how they can impact emotions and behaviors. Client progressing as evidenced by report of improved use of coping skills and reduced depressive symptoms. Will continue IOP to promote gains and improve daily functioning.
--- NOTE | 2019-06-17 09:31 | BH.AFTERPLAN ---
Aftercare Plan - Demographics Treatment End Date:: 06/19/19 Psychiatrist:: Jhoana Rodriguez Psychiatrist Office #:: [phone] [facility] Therapist:: Beverley Roca Therapist Phone #:: [phone] - Medications Home Medications: Home Medications Amitriptyline HCl [Elavil] 25 mg PO DAILY 05/15/19 Aripiprazole [Abilify] 10 mg PO DAILY 05/15/19 Estradiol Valerate [Delestrogen] 20 mg IM .[id number] 05/15/19 Spironolactone [Aldactone] 100 mg PO BID 05/15/19 buPROPion XL [Wellbutrin Xl] 300 mg PO DAILY 05/15/19 - Plan Details Progress/Aftercare Plan Details:: You have demonstrated significant progress on your treatment goals of decreasing dissociation, anxiety and depressive symptoms. You have put forth effort to consistently apply the skills you have learned including meditation, body scan, and thought challenge. Taking steps to incorporate the skills and strategies you have learned into everyday life has had signficiant positive impact on your mental health symptoms. The plan is to follow up with already established outpatient counselor when return to [facility] and to schedule with primary care physician for medication management when needed. Strategies for Success:: 1. Continue to use meditation, body scan and mindfulness. 2. Continue to recognize and challenge distorted thought patterns. 3. Remember to think things through before make rash or impulsive decisions. 4. Pay attention to warning signs so you can use skills before in a crisis. 5. Communicate honestly with others! Keeping your thoughts and feelings to yourself tends to make things worse. 6. Making daily and weekly goals can help keep you motivated and focused on what you want to achieve. - Appointments Appointments/Referrals to Other Services:: 1. Schedule with your outpatient therapist for when you return to [facility]. 2. Schedule with primary care doctor for medication management as needed.
--- NOTE | 2019-06-17 10:00 | BH.MDN ---
Multi-Disciplinary Note - Note 30-min Individual Time Started:: 09:12 Date: 06/17/19 Purpose of session/treatment goals addressed:: Purpose of session was to assess pt's current symptoms and stressors. Other topics included Time Stopped:: 09:30
--- NOTE | 2019-06-17 10:17 | BH.SGPN.GN ---
Behaviors/Verbalizations/Mental Status: []Client alert and oriented, neatly dressed and groomed. Eye contact fair-on her phone at times. Motor activity appropriate. Speech within normal limits. Affect congruent, mood euthymic. Thoughts linear, logical, no signs of hallucinations or delusions. Client Response/Progress/Benefit: []Client participated in group discussion and worksheet activity. Worked together with the group to define a crisis and discuss examples of crisis situations. Client helped the group explore how coping with crisis in unhealthy ways can lead to a mental health crisis. Client stated one can prevent external crises from turning into internal crises by recognizing early warning signs and using coping skills. Group identified warning signs one could have which included; self-harm, drinking or drugs, increased sleep, avoidance, craving unhealthy things, shutting down, obsessing over things, poor work performance, difficulty completing daily tasks, and racing thoughts. Client completed her own personal warning signs worksheet. Client identified her top three crisis warning signs to be problems with memory, lack of interest in doing things, and isolation. Benefited from group by increasing awareness of crisis and personal warning signs. Progress noted as client reports improved mood stability.
--- NOTE | 2019-06-19 09:00 | BH.SGPN.GN ---
Behaviors/Verbalizations/Mental Status: [] Eye contact is good. Motor activity is appropriate. Appearance is casual. Speech is Appropriate. Mood is euthymic. Affect is full. Thoughts are linear and logical. No evidence of psychosis. Reviewed daily check in sheet and no reports of suicidal ideations or intent. Client Response/Progress/Benefit: [] Pt was an active participant in group discussion. Emotion for today is excited. Shared that today is her last day in IOP. Reports that she broke up with SO last night, however believes that this is a positive decision. Shared that the relationship was mostly toxic. They talked for over an hour and patient believes that they communicated well. She reports feeling like a weight has been lifted off her shoulders. Pt was very direct and did not elaborate much on the break-up or reasons behind it however stated numerous times I'm complete;y fine with it when peers asked about her mood. Shared that she is excited about the progress she has made in the program in regards to learning skills to manage her emotions and dissociation as well as decrease her suicidal ideations. More hopeful about the future. Discussed the groups which she felt were most helpful noting that the group on communication styles was very beneficial. Progress noted throughout IOP. Pt will be discharged from [facility] today. Narrative Note: []
--- NOTE | 2019-06-19 10:08 | BH.SGPN.GN ---
Behaviors/Verbalizations/Mental Status: [Pt alert and oriented, casual dress, hygiene tended to. Eye contact good. Motor activity appropriate. Speech within normal limits. Affect congruent, mood anxious, dysthymic. Thoughts linear, logical, no signs of hallucinations or delusions.] Client Response/Progress/Benefit: [Pt receptive to session, provided input and remained an active listener throughout discussion on stress. Able to brainstorm with the group positive and negative aspects of stress on physical and mental health. Pt participated in identifying current stressors impacting mental health. Pt's current stressors include: relationships, lack of supports/friends, mental health, finances, and worry about her future. Appeared to benefit from gaining awareness of own current stressors and learning about the impact stress has on overall wellbeing. Progress noted in improved ability to identify impact of not managing stressors is impacting mental health and wellbeing. Recommended continued IOP tx to increase utilization of healthy coping skills, improve mood stability, and prevent decompensation.] Narrative Note: []
--- NOTE | 2019-06-19 11:08 | BH.SGPN.GN ---
Behaviors/Verbalizations/Mental Status: []Client alert and oriented, casually dressed and groomed. Eye contact good. Motor activity appropriate. Speech within normal limits. Affect congruent, mood euthymic. Thoughts linear, logical, no signs of hallucinations or delusions. Client Response/Progress/Benefit: []Client responded well to session, providing to discussion and participating in activity. Client reported belief she has managed stress better since starting IOP. Client agreed with peers that it is helpful to focus on stressors in one?s control to reduce stress and anxiety. Client shared focusing on stressors in one?s control means ?you can do something about it.? Client participated in the group activity. The group quickly became frustrated and client recognized the group often turned to giving up or quick fixes when things got difficult. The group was able to connect this to how they typically respond to stress in their daily lives. Client identified strategies from the activity that helped the group successfully manage stress such as; slowing down, trying new ideas, using their resources, being persistent, and focusing on one thing at a time. Client helped the group discuss the four A?s of stress management. Client reported she wants to work on improving her acceptance of stressor that are out of her control. Client will discharge from IOP today as she has made significant progress towards her treatment goals.
--- NOTE | 2019-06-22 13:39 | BH.DS_ITS ---
Discharge Summary - Demographics Date of Admission:: 05/11/19 Discharge Date: 06/19/19 Presenting Problems at Admission:: Pt self-referred to [facility] following a psychiatric admission to [facility] in January 2019 for suicidal ideation. At time of admission pt in significant distress over a situation that occurred while at college. Pt endorsed racing thoughts, flashbacks, dissociative episodes, and passive thoughts of . Pt reported increased isolative behaviors, avoidant behaviors, and continued fear about returning to college in the fall. At admission pt was not functioning at baseline and mental health symptoms interring with social and educational functioning. 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 - Treatment Progress During Treatment & Response: Pt has demonstrated significant progress on her treatment goals of decreasing dissociation, anxiety and depressive symptoms as indicated by self-report and DSM 5 cross-cutting measure. Pt has made an 80% reduction in depressive symptoms and an 86% decrease in anxious symptoms per the results of intake vs discharge scores on the DSM 5 cross- cutting measure. Pt has put forth effort to consistently apply the skills she has earned including meditation, body scan, and thought challenge. Taking steps to incorporate the skills and strategies she has learned into everyday life has had signficiant positive impact on her mental health symptoms. Pt tended to be a passive participant in group sessions AEB limited contributions to discussion, however often took notes throughout. Pt engaged in individual session AEB pt opening up and applying skills learned. Issues Still to be Addressed:: Pt could benefit from continued focus on managing anxious symptoms to decrease dissociative epidoses. Reinforcing mindfulness, body scan, radical acceptance also will be helpful when pt returns to college. Discharge Recommendations/Instructions:: The plan is to follow up with already established outpatient counselor when return to [facility] and to schedule with primary care physician for medication management when needed. Pt encouraged to establish until she returns to college in 7 weeks, however pt stated she wants to wait so she can stay with her college counselor. Discharge Handout: Complete Discharge Handout with client on aftercare options and continuity of care.
== END 2019-06-19 14:00 | disposition home or self-care (01) ==
LOC: BHIOP 09:00
PROVIDERS: Family Provider Family Medicine; PCP Family Medicine; Referring Provider Psychiatry & Neurology Psychiatry; Visit Provider Psychiatry & Neurology Psychiatry
DX: F33.41 Major depressive disorder, recurrent, in partial remission (principal); F41.1 Generalized anxiety disorder; F48.1 Depersonalization-derealization syndrome; F60.9 Personality disorder, unspecified; M79.7 Fibromyalgia; Z81.8 Family history of other mental and behavioral disorders; Z79.899 Other long term (current) drug therapy
CPT/HCPCS: H0035; 90832; 90853

== ENCOUNTER → 2022-09-20 | Outpatient (CLI) | payer OTHER, SELFPAY ==
[2022-09-20 13:09] LABS: AST(SGOT) 16 U/L (15-37); Alanine Aminotransfer ALT/SGPT 37 U/L (16-61); Albumin, Serum 3.9 g/dL (3.2-5.0); Alkaline Phosphatase 45 U/L (45-117); Anion Gap 7 (5-15); BUN 11 mg/dL (7-18); BUN/Creat Ratio 14.1 RATIO (10-20); Bilirubin, Direct 0.07 mg/dL (0.00-0.30); Chloride 106 mmol/L (98-107); Cholesterol 221 mg/dL (200); Creatinine, Serum 0.78 mg/dL (0.70-1.30); EST Glomerular Filtration Rate 129 mL/min (>60); Est Glom Filt Rate - Afr Amer 156 mL/min (>60); Estradiol 86.8 pg/mL; Globulin 3.7 g/dL (2.2-4.2); Glucose 91 mg/dL (74-106); High Density Lipoprotein 39 mg/dL; Potassium 3.9 mmol/L (3.5-5.1); Protein, Total 7.6 g/dL (6.4-8.2); Sodium Level 137 mmol/L (136-145); Triglycerides 111 mg/dL; Very Low Density Lipoprotein 22 mg/dL (5-40)
[2022-09-20 15:16] LABS: Hepatitis C Antibody Non-Reactive (Nonreactive); Syphilis Antibodies Non-reactive
[2022-09-20 19:11] LABS: Chlamydia Trachomatis by PCR Negative (Negative); Neisserai gonorrhoeae by PCR Negative (Negative); Probe Check PASS; Sample Adequacy Control PASS; Specimen Processing Control PASS
[2022-09-21 09:30] LABS: Hepatitis A AB, Total Negative (Negative)
== END | disposition home or self-care (01) ==
PROVIDERS: PCP Family Medicine; Referring Provider Pediatrics Pediatric Endocrinology; Visit Provider Pediatrics Pediatric Endocrinology
DX: F64.0 Transsexualism (principal)
CPT/HCPCS: 36415; 80048; 80061; 80076; 82670; 84403; 86708; 86780; 86803; 87491; 87591